=== PATIENT | female | born 1955 | race Caucasian/White ===

== ENCOUNTER 2018-09-08 16:26 | Inpatient (IN) | payer OTHER | END 2018-09-09 17:50 | disposition left against medical advice (07) | LOC: EDH 16:26 → 2DH 09-09 15:22 → EDHIP 16:27 ==

== ENCOUNTER 2018-09-23 12:31 | Inpatient (IN) | payer OTHER ==
[~2018-09-23] VITALS: Ht 170.2 cm; Wt 79.8 kg
[2018-09-23 13:11] LABS: BASOPHILS % (AUTO) 0.7 % (0.0-5.0); EOSINOPHILS % (AUTO) 2.8 % (0.0-8.0); HEMATOCRIT 42.5 % (36-48); LYMPHOCYTES % (AUTO) 10.6 % (21.0-51.0); MEAN CORPUSCULAR HEMOGLOBIN 32.6 pg (27.0-33.0); MEAN CORPUSCULAR HGB CONC 34.7 g/dL (32.0-36.0); MONOCYTES % (AUTO) 6.4 % (3.0-13.0); NEUTROPHILS % (AUTO) 79.5 % (40.0-77.0); PLATELET COUNT (AUTO) 449 K/uL (130-400); RED BLOOD CELL COUNT(AUTO) 4.52 MIL/uL (4.00-5.50); RED CELL DISTRIBUTION WIDTH 12.1 % (11.0-15.5); WHITE BLOOD COUNT (AUTO) 14.4 K/uL (4.8-10.8)
[2018-09-23 13:21] LABS: CREATININE 0.7 mg/dL (0.5-1.5); POTASSIUM 4.3 mmol/L (3.5-5.1)
[2018-09-23 13:25] LABS: ALBUMIN 2.8 g/dL (3.5-5.0); BILIRUBIN,TOTAL 0.3 mg/dL (0.2-1.0); INR 0.95 (0.85-1.15); PARTIAL THROMBOPLASTIN TIME 28.3 SEC (26.3-35.5); TOTAL PROTEIN, SERUM 6.8 g/dL (6.0-8.3)
[2018-09-23] MEDS ORDERED: IPRATROPIUM/ALBUTEROL SULFATE 3 ML SOLUTION IH ONE ×2 (14:33→19:20)
[2018-09-23] MEDS ORDERED: ZOSYN 3.375GM+NS 50ML 50 ML IV ONE (15:18)
[2018-09-23] MEDS ORDERED: METHYLPREDNISOLONE SOD SUCC 40MG/ML 1ML ONE (15:18)
[2018-09-23] MEDS ORDERED: DOXYCYCLINE 100MG+NS 250ML 250 ML IV ONE (16:02)
[2018-09-23] MEDS ORDERED: LIDOCAINE HCL-MPF 1% 2ML VIAL ONE (18:30)
[2018-09-23] MEDS ORDERED: ONDANSETRON HCL 4 MG/2 ML VIAL IV PRN (18:45)
[2018-09-23] MEDS ORDERED: GUAIFENESIN-DM 200/20 MG 10 ML PO PRN (18:45)
[2018-09-23] MEDS ORDERED: ACETAMINOPHEN 325 MG TAB PO PRN ×2 (18:45)
[2018-09-23] MEDS ORDERED: LACTULOSE 20 GM/30 ML UDCUP PO PRN (18:45)
[2018-09-23] MEDS ORDERED: HYDROMORPHONE 1 MG/1 ML AMP IV PRN (18:45)
[2018-09-23] MEDS ORDERED: DiphenhydrAMINE HCL 50 MG/ML VIAL IV PRN (18:45)
[2018-09-23 19:04] VITALS: BP 161/85
[2018-09-23] MEDS ORDERED: HYDRALAZINE HCL 20 MG/ML VIAL IV PRN (20:00)
[2018-09-23] MEDS: FAMOTIDINE 20MG TAB 20 MG TAB PO SCH (21:12)
[2018-09-23] MEDS: BENZONATATE 100 MG CAPSULE PO SCH (21:13)
[2018-09-23] MEDS: ZOSYN 3.375GM+NS 50ML 50 ML IV SCH (21:14)
[2018-09-23] MEDS: IPRATROPIUM/ALBUTEROL SULFATE 3 ML SOLUTION IH SCH (21:50)
[2018-09-23] MEDS: HYDROCODONE/ACETAMINOPHEN 5/325 MG TAB PO PRN (22:31)
[2018-09-23 23:09] VITALS: BP 137/74
[2018-09-24 00:09] LABS: TRIGLYCERIDES,BODY FLUID 16 mg/dL
[2018-09-24 00:25] LABS: BF EOSINOPHIL 5 %; BF LYMPHOCYTE 75 %; BF MONOCYTE 5 %
[2018-09-24 00:26] LABS: APPEARANCE BODY FLUID TURBID (CLEAR); COLOR,BODY FLUID RED (LT YELLOW); SPECIMENTYPE,BODY FLUID PLEURAL
[2018-09-24 00:27] LABS: TOTAL VOLUME,BODY FLUID 40 mL
[2018-09-24 00:28] LABS: BODY FLUID RBC 13750 /cu. mm.; BODY FLUID WBC 2733 /cu. mm.
[2018-09-24] MEDS: IPRATROPIUM/ALBUTEROL SULFATE 3 ML SOLUTION IH SCH ×6 (01:11→22:30)
[2018-09-24] MEDS ORDERED: HYDROMORPHONE 1 MG/1 ML AMP ONE (01:26)
[2018-09-24] MEDS: HYDROMORPHONE HCL 0.5 MG/0.5 ML ML IVP PRN (01:30)
[2018-09-24 03:26] VITALS: BP 131/72
[2018-09-24] MEDS: HYDROCODONE/ACETAMINOPHEN 5/325 MG TAB PO PRN ×2 (03:35→22:58)
[2018-09-24 05:16] LABS: BASOPHILS % (AUTO) 0.4 % (0.0-5.0); HEMATOCRIT 39.9 % (36-48); LYMPHOCYTES % (AUTO) 6.5 % (21.0-51.0); MEAN CORPUSCULAR HEMOGLOBIN 32.7 pg (27.0-33.0); MEAN CORPUSCULAR HGB CONC 34.2 g/dL (32.0-36.0); MEAN CORPUSCULAR VOLUME 95.5 fL (79-99); MONOCYTES % (AUTO) 2.1 % (3.0-13.0); PLATELET COUNT (AUTO) 453 K/uL (130-400); RED BLOOD CELL COUNT(AUTO) 4.18 MIL/uL (4.00-5.50); RED CELL DISTRIBUTION WIDTH 11.9 % (11.0-15.5); WHITE BLOOD COUNT (AUTO) 14.4 K/uL (4.8-10.8)
[2018-09-24 05:19] LABS: HEMOGLOBIN A1C 6.6 % (4.0-6.0)
[2018-09-24] MEDS: ZOSYN 3.375GM+NS 50ML 50 ML IV SCH ×3 (05:22→21:29)
[2018-09-24 05:26] LABS: CREATININE 0.6 mg/dL (0.5-1.5); PHOSPHORUS 4.5 mg/dL (2.5-4.9); POTASSIUM 4.4 mmol/L (3.5-5.1)
[2018-09-24] MEDS ORDERED: METHYLPREDNISOLONE SOD SUCC 125MG/2ML VIAL IVP SCH (07:45)
[2018-09-24 08:00] VITALS: BP 136/70
[2018-09-24] MEDS: DOXYCYCLINE 100MG+NS 250ML 250 ML IV SCH ×2 (09:59→21:29)
[2018-09-24] MEDS: FAMOTIDINE 20MG TAB 20 MG TAB PO SCH ×2 (09:59→21:29)
[2018-09-24] MEDS: BENZONATATE 100 MG CAPSULE PO SCH ×3 (09:59→21:29)
[2018-09-24 12:00] VITALS: BP 178/81
[2018-09-24 16:00] VITALS: BP 149/99
[2018-09-24 19:18] VITALS: BP 131/87
[2018-09-24] MEDS: METHYLPREDNISOLONE SOD SUCC 40MG/ML 1ML IVP SCH (21:29)
[2018-09-24 23:31] VITALS: BP 149/78
[2018-09-25] MEDS ORDERED: HYDROMORPHONE 1 MG/1 ML AMP ONE (01:12)
[2018-09-25] MEDS: HYDROMORPHONE HCL 0.5 MG/0.5 ML ML IVP PRN ×2 (01:15→12:17)
[2018-09-25] MEDS: IPRATROPIUM/ALBUTEROL SULFATE 3 ML SOLUTION IH SCH ×5 (02:46→22:39)
[2018-09-25 03:17] VITALS: BP 139/48
[2018-09-25] MEDS: HYDROCODONE/ACETAMINOPHEN 5/325 MG TAB PO PRN ×2 (03:40→22:04)
[2018-09-25] MEDS: DOXYCYCLINE 100MG+NS 250ML 250 ML IV SCH ×2 (05:31→18:57)
[2018-09-25] MEDS: ZOSYN 3.375GM+NS 50ML 50 ML IV SCH ×3 (05:31→20:09)
[2018-09-25 05:38] LABS: BASOPHILS % (AUTO) 0.2 % (0.0-5.0); HEMATOCRIT 40.7 % (36-48); LYMPHOCYTES % (AUTO) 5.9 % (21.0-51.0); MEAN CORPUSCULAR HEMOGLOBIN 32.2 pg (27.0-33.0); MEAN CORPUSCULAR HGB CONC 33.7 g/dL (32.0-36.0); MEAN CORPUSCULAR VOLUME 95.4 fL (79-99); MONOCYTES % (AUTO) 2.5 % (3.0-13.0); NEUTROPHILS % (AUTO) 91.4 % (40.0-77.0); PLATELET COUNT (AUTO) 412 K/uL (130-400); RED BLOOD CELL COUNT(AUTO) 4.27 MIL/uL (4.00-5.50); RED CELL DISTRIBUTION WIDTH 12.1 % (11.0-15.5); WHITE BLOOD COUNT (AUTO) 17.4 K/uL (4.8-10.8)
[2018-09-25 05:58] LABS: CREATININE 0.6 mg/dL (0.5-1.5); POTASSIUM 4.4 mmol/L (3.5-5.1)
[2018-09-25 08:00] VITALS: BP 140/69
--- NOTE | 2018-09-25 08:00 | NUR ---
ALERT AND ORIENTED X3 WITH NO ACUTE DISTRESS, OBSERVED ON CONTINUOUS O2SAT WITH SATURATION OF 96% ON ROOM AIR. DENIES PAIN WITH ASSESSMENT. RIGHT CHEST TUBE TO 20CM SUCTION . PLAN OF CARE WAS DISCUSSED WITH THE PATIENT WHO VOICED UNDERSTANDING. PATIENT IS VERY TALKATIVE AND SEEMS ANXIOUS. CALM APPROACH WAS USED.
[2018-09-25] MEDS: BENZONATATE 100 MG CAPSULE PO SCH ×3 (08:57→20:09)
[2018-09-25] MEDS: METHYLPREDNISOLONE SOD SUCC 40MG/ML 1ML IVP SCH (08:57)
[2018-09-25] MEDS: FAMOTIDINE 20MG TAB 20 MG TAB PO SCH ×2 (08:57→20:09)
--- NOTE | 2018-09-25 10:30 | NUR ---
AMBULATED WITH PHYSICAL THERAPIST AROUND THE HALLWAY AND TOLERATED IT WELL.
[2018-09-25 12:00] VITALS: BP 130/75
--- NOTE | 2018-09-25 13:12 | NUR ---
DUC [facility]LE WAS MADE AWARE OF NEED FOR MED RECONCILIATION.
[2018-09-25 16:00] VITALS: BP 147/87
--- NOTE | 2018-09-25 17:06 | NUR ---
cm note met with patient and resides at home with common law spouse, pt independent with adls and ambulation. no dme. goes to see Dariana robison for md and has appt with [employer] [facility] for tomorrow. for possible assistance. no dc needs. does not wish to go to low income clinics in the area, she can pay for services at private [facility]. dc plan is back to home. Addendum: 09/25/18 at 1709 by DEAN LEBLANC CM Amended: Links added.
[2018-09-25 19:09] VITALS: BP 94/56
[2018-09-25] MEDS: ALPRAZOLAM 0.5 MG TABLET PO PRN (22:03)
[2018-09-25 23:18] VITALS: BP 124/55
[2018-09-26] MEDS: HYDROMORPHONE HCL 0.5 MG/0.5 ML ML IVP PRN (00:01)
[2018-09-26] MEDS: ZOLPIDEM TARTRATE 5 MG TAB PO PRN ×2 (01:20→23:25)
[2018-09-26] MEDS: IPRATROPIUM/ALBUTEROL SULFATE 3 ML SOLUTION IH SCH ×6 (02:50→22:56)
[2018-09-26 03:00] VITALS: BP 135/89
[2018-09-26] MEDS: ZOSYN 3.375GM+NS 50ML 50 ML IV SCH ×3 (04:11→22:56)
[2018-09-26 05:13] LABS: BASOPHILS % (AUTO) 0.5 % (0.0-5.0); EOSINOPHILS % (AUTO) 0.5 % (0.0-8.0); HEMATOCRIT 42.2 % (36-48); LYMPHOCYTES % (AUTO) 16.7 % (21.0-51.0); MEAN CORPUSCULAR HEMOGLOBIN 32.3 pg (27.0-33.0); MEAN CORPUSCULAR HGB CONC 33.5 g/dL (32.0-36.0); MEAN CORPUSCULAR VOLUME 96.5 fL (79-99); MONOCYTES % (AUTO) 9.5 % (3.0-13.0); NEUTROPHILS % (AUTO) 72.8 % (40.0-77.0); PLATELET COUNT (AUTO) 386 K/uL (130-400); RED BLOOD CELL COUNT(AUTO) 4.37 MIL/uL (4.00-5.50); RED CELL DISTRIBUTION WIDTH 12.3 % (11.0-15.5); WHITE BLOOD COUNT (AUTO) 14.3 K/uL (4.8-10.8)
[2018-09-26 05:21] LABS: CREATININE 0.6 mg/dL (0.5-1.5); POTASSIUM 3.8 mmol/L (3.5-5.1)
[2018-09-26] MEDS: DOXYCYCLINE 100MG+NS 250ML 250 ML IV SCH ×2 (06:54→20:11)
[2018-09-26 07:30] VITALS: BP 144/80
[2018-09-26] MEDS: PREDNISONE 10 MG TABLET PO SCH (08:59)
[2018-09-26] MEDS: FAMOTIDINE 20MG TAB 20 MG TAB PO SCH ×2 (08:59→20:11)
[2018-09-26] MEDS: BENZONATATE 100 MG CAPSULE PO SCH ×3 (08:59→20:11)
[2018-09-26 11:00] VITALS: BP 142/81
--- NOTE | 2018-09-26 13:59 | NUR ---
UP AND ABOUT PT IS UP AND AOBUT IN ROOM AND HALLWAY, NO DISTRESS, NO VISIBLE SHORTNESS OR BREATH OR CHEST PAIN. NO DC ORDER YET. Addendum: 09/26/18 at 1401 by PIERO GAMEZ RN CM Amended: Links added.
[2018-09-26 16:00] VITALS: BP 138/79
[2018-09-26 22:25] VITALS: BP 150/82
[2018-09-27] VITALS: BP 149/91
[2018-09-27] MEDS: IPRATROPIUM/ALBUTEROL SULFATE 3 ML SOLUTION IH SCH ×4 (01:14→13:47)
[2018-09-27] MEDS: ALPRAZOLAM 0.5 MG TABLET PO PRN (03:19)
[2018-09-27 04:00] VITALS: BP 132/91
[2018-09-27 07:30] VITALS: BP 152/81
[2018-09-27] MEDS: FAMOTIDINE 20MG TAB 20 MG TAB PO SCH (08:39)
[2018-09-27] MEDS: PREDNISONE 10 MG TABLET PO SCH (08:39)
[2018-09-27] MEDS: BENZONATATE 100 MG CAPSULE PO SCH (08:39)
[2018-09-27] MEDS: DOXYCYCLINE 100MG+NS 250ML 250 ML IV SCH (08:39)
[2018-09-27 11:00] VITALS: BP 141/79
[2018-09-27] MEDS: ZOSYN 3.375GM+NS 50ML 50 ML IV SCH (13:00)
[2018-09-27 16:00] VITALS: BP 95/48
== END 2018-09-27 14:35 | disposition home or self-care (01) | DRG 598 ==
LOC: EDH 12:31 → EDHIP 12:32 → OBSVTOIN 12:32 → 4CH 18:23
PROVIDERS: ADMIT Internal Medicine Critical Care Medicine; ATTEND Internal Medicine Critical Care Medicine
PROC: 0W9900Z Drainage of Right Pleural Cavity with Drainage Device, Open Approach (ICD-10-PCS; principal; 2018-09-23)
DX: C50.919 Malignant neoplasm of unspecified site of unspecified female breast (principal); J98.11 Atelectasis; J91.0 Malignant pleural effusion; C78.2 Secondary malignant neoplasm of pleura; J44.9 Chronic obstructive pulmonary disease, unspecified; E11.9 Type 2 diabetes mellitus without complications; F10.10 Alcohol abuse, uncomplicated; F41.9 Anxiety disorder, unspecified; K21.9 Gastro-esophageal reflux disease without esophagitis; Z72.0 Tobacco use; Z91.19 Patient's noncompliance with other medical treatment and regimen; Z88.5 Allergy status to narcotic agent; Z80.3 Family history of malignant neoplasm of breast
CPT/HCPCS: 36415; 71045; 71046; 71250; 80048; 80053; 82945; 83036; 83615; 83735; 83986; 84100; 84157; 84478; 84484; 85025; 85610; 85730; 87071; 87116; 87205; 87206; 89051; 93005; 93306; 94640; 94664; 94760; 99291; A4606; A7048; G0378; J1170; J2543; J2920; J2930; J3490; J7512